=== PATIENT | male | born 1960 | race Caucasian/White ===

== ENCOUNTER 2016-05-23 18:33 | Emergency (ER) | payer OTHER ==
--- NOTE | ~2016-05-23 | CR58 ---
[facility] A Service of [facility] & [facility] RADIOLOGY TEXT RESULTS PATIENT: GENEVIEVE ROJAS LOCATION: [facility] : 56 UNIT #: [id number] AGE: [address]: Peg Vivar APRN SEX: M ORDER DR: [id number] [facility] [address] [facility] [place], [place] [address] [id number] MR#: [id number] #: [id number] NAME: GENEVIEVE ROJSA. : 1960 SEX: M STUDY DATE/TIME: 05/23/2016 18:44 UNIT: TX ROOM: STUDY DESCRIPTION: CR Cervical Spine 2 or 3 Views Attending Physician: Peg Vivar A.P.R.N. Ordering Physician: Ed Doctor [id number] [facility] Primary Care Physician: Primary Care Physician No MEDICAL IMAGING REPORT This report is preliminary unless electronic signature is present REVISED REPORT SEE ADDENDUM EXAM Cervical series, 05/23/2016 INDICATIONS Pain, recent fall, cervical fusion in June of last year, symptoms for a week after a fall a week ago. Neck pain. TECHNIQUE 3 views of the cervical spine were performed. We have no comparisons. FINDINGS The patient is status post anterior cervical fusion spanning the C3-C7 levels. Surgical hardware to include screws and plates appears to be intact. Prosthetic disc devices are present at the operative levels, as well. Alignment is preserved. No acute fracture. Soft tissues within normal limits. Cervicothoracic junction grossly intact. Soft tissues within normal limits. There is multilevel facet arthropathy throughout the cervical spine and uncovertebral spurring. Dens and left lateral mass intact. The right lateral mass is not well seen or evaluated. Suggest a repeat open-mouth odontoid view with better positioning when the patient can cooperate clinically. IMPRESSION 1. Incomplete c-spine series; the dens and lateral masses are suboptimally visualized and assessed, including the right lateral mass in particular. A repeat open-mouth odontoid view is recommended when clinically appropriate. 2. There is otherwise no acute fracture or malalignment. Extensive anterior cervical fusion changes span C3-C7. Associated degenerative STS. [facility] A Service of [facility] & [facility] RADIOLOGY TEXT RESULTS PATIENT: GENEVIEVE ROJAS LOCATION: [facility] : 56 UNIT #: [id number] AGE: [address]: Peg Vivar APRN SEX: M ORDER DR: changes related to facet arthropathy and uncovertebral spurring as described above. Dictated by... Evan Ribeiro M.D. THIS IS AN ELECTRONICALLY VERIFIED REPORT Evan Ribeiro M.D. at 05/24/2016 5:11 PM Dixon TD: 05/23/2016 23:25 JOB #: [id number] ADDENDUM Repeat open-mouth odontoid and dedicated odontoid views were performed. Dens and lateral masses appear intact. There is degenerative change at C1-2. IMPRESSION 1. Dens and lateral masses appear intact. No acute fracture. 2. Anterior cervical fusion changes as described above. Additional degenerative changes as described. Dictated by... Evan Ribeiro M.D. THIS IS AN ELECTRONICALLY VERIFIED REPORT Evan Ribeiro M.D. at 05/25/2016 5:13 PM Mario TD: 05/23/2016 23:45 JOB #: [id number] CC: Lesvia/invision Please Delete MEDICAL IMAGING REPORT Page 1 of 1 COPY
[~2016-05-23 18:33] MED LIST: ACTONEL PO; ADVIL200 M1 PO; ASPIRIN PO; CAPTOPRIL PO; NO MEDICATIONS; ULTRAM PO
== END 2016-05-23 20:10 | disposition home or self-care (01) ==
LOC: CFTX 18:33
DX: M54.2 Cervicalgia (principal); G89.29 Other chronic pain; I10 Essential (primary) hypertension; F17.210 Nicotine dependence, cigarettes, uncomplicated
CPT/HCPCS: 72040; 99283

== ENCOUNTER 2016-08-24 15:39 | Emergency (ER) | payer OTHER ==
[~2016-08-24] VITALS: Ht 167.6 cm; Wt 57.6 kg
== END 2016-08-24 18:15 | disposition home or self-care (01) ==
LOC: CED 15:39
DX: S01.01XA Laceration without foreign body of scalp, initial encounter (principal); F17.200 Nicotine dependence, unspecified, uncomplicated; Y09 Assault by unspecified means
CPT/HCPCS: 12002; 99283